=== PATIENT | female | born 1995 | race Asian ===

== ENCOUNTER 2021-01-26 00:29 | Emergency (ER) | payer OTHER ==
[~2021-01-26] VITALS: Ht 160 cm; Wt 62.1 kg
--- NOTE | 2021-01-26 00:35 | PHYS DOC ---
Adult General HPI HPI This is a 26-year-old female G2, P1 at WGA 20 6/7 presents to the emergency department with complaint of vaginal bleeding x2 since yesterday 4 PM. Patient was accompanied by her . She states that she had scant amount of vaginal bleeding yesterday 4 PM. She also noted abdominal cramping discomfort going on for past several days about 2-3 times a day. Today she noted bright red blood again scant amount covering the pantiliner 1 hour prior to arrival to the ER. She was concerned. She came to the ER for evaluation. Denies any trauma. She does report taking a walk today. She had been following up with [facility] at the [facility]. She had blood work as well as ultrasound done. Reportedly ongoing and unremarkable. Review of Systems Review of Systems Constitutional: Denies fever or chills [] Eyes: Denies change in visual acuity, redness, or eye pain [] HENT: Denies nasal congestion or sore throat [] Respiratory: Denies cough or shortness of breath [] Cardiovascular: No additional information not addressed in HPI [] GI: Denies abdominal pain, nausea, vomiting, bloody stools or diarrhea [] : Vaginal bleed during of 21 weeks gestational age Musculoskeletal: Denies back pain or joint pain [] Integument: Denies rash or skin lesions [] Neurologic: Denies headache, focal weakness or sensory changes [] Endocrine: Denies polyuria or polydipsia [] All other systems were reviewed and found to be within normal limits, except as documented in this note. Physical Exam Physical Exam Constitutional: Well developed, well nourished, no acute distress, non-toxic appearance. [] HENT: Normocephalic, atraumatic, bilateral external ears normal, oropharynx moist, no oral exudates, nose normal. [] Eyes: PERRLA, EOMI, conjunctiva normal, no discharge. [] Neck: Normal range of motion, no tenderness, supple, no stridor. [] Cardiovascular:Heart rate regular rhythm, no murmur [] Lungs & Thorax: Bilateral breath sounds clear to auscultation [] Abdomen: Bowel sounds normal, soft, no tenderness, no masses, no pulsatile masses. Gravid abdomen Skin: Warm, dry, no erythema, no rash. [] Back: No tenderness, no CVA tenderness. [] Extremities: No tenderness, no cyanosis, no clubbing, ROM intact, no edema. [] Neurologic: Alert and oriented X 3, normal motor function, normal sensory function, no focal deficits noted. [] Psychologic: Affect normal, judgement normal, mood normal. [] EKG EKG [] Radiology/Procedures Radiology/Procedures [] Heart Score C/O Chest Pain: N/A Risk Factors: Risk Factors: DM, Current or recent (<one month) smoker, HTN, HLP, family history of CAD, obesity. Risk Scores: Risk Factors: DM, Current or recent (<one month) smoker, HTN, HLP, family history of CAD, obesity. Course & Med Decision Making Course & Med Decision Making PATIENT: MARY DE OLIVEIRA ACCOUNT: [id number] : 1995 LOCATION: ER AGE: 26 SEX: F EXAM STATUS: REG ER ORD. PHYSICIAN: PATIENCE HINOJOSA MD REASON: Vaginal bleeding, cramping pain, 21-week gestational age PROCEDURE: OB <14 WKS Obstetric ultrasound less than 14 weeks, limited: Reason for examination: Vaginal bleeding and cramping pain. Single viable intrauterine gestation is present. The cardiac rate of 130 bpm. Placenta is present posteriorly with no evidence of previa or abruption. Adequate amniotic fluid appears be present. No gross abnormality seen at the stomach or kidneys. Fetus is in breech presentation. Biparietal diameter is 4.6 cm corresponding to gestational age of 19 weeks 6 days. Head circumference is 18.0 cm corresponding to gestational age of 2 weeks 1 day. Abdominal circumference is 15.0 cm corresponding to gestational age of 20 weeks 1 day. Femur length is 3.16 cm corresponding to gestational age of 21 weeks 4 days. Head circumference to abdominal circumference ratio is 1.18. Estimated weight is 13 ounces. Estimated gestational age is 20 weeks 3 days with estimated date of confinement of 06/12/2021. The maternal adnexa are not optimally visualized. IMPRESSION: Single viable intrauterine gestation with mean gestational age of 20 weeks 3 days and estimated date of confinement of 06/12/2021. Electronically signed by: Emi Fuentes MD (01/26/2021 3:14 AM) [facility] Test 01/26/21 00:38 01/26/21 00:50 Urine Collection Type Unknown Urine Color Yellow Urine Clarity Clear Urine pH 7.5 Urine Specific Ione 1.020 Urine Protein Neg Urine Glucose (UA) Neg mg/dL Urine Ketones (Stick) Neg mg/dL Urine Blood Neg Urine Nitrite Neg Urine Bilirubin Neg Urine Urobilinogen Dipstick 0.2 mg/dL Urine Leukocyte Esterase Neg Urine RBC 0 /HPF Urine WBC 1-4 /HPF Urine Squamous Epithelial Cells Few /LPF Urine Bacteria 0 /HPF White Blood Count 8.9 x10^3/uL Red Blood Count 3.60 x10^6/uL Hemoglobin 11.8 g/dL Hematocrit 34.8 % Mean Corpuscular Volume 97 fL Mean Corpuscular Hemoglobin 33 pg Mean Corpuscular Hemoglobin Concent 34 g/dL Red Cell Distribution Width 14.9 % Platelet Count 300 x10^3/uL Neutrophils (%) (Auto) 67 % Lymphocytes (%) (Auto) 25 % Monocytes (%) (Auto) 5 % Eosinophils (%) (Auto) 3 % Basophils (%) (Auto) 0 % Neutrophils # (Auto) 5.9 x10^3uL Lymphocytes # (Auto) 2.2 x10^3/uL Monocytes # (Auto) 0.5 x10^3/uL Eosinophils # (Auto) 0.3 x10^3/uL Basophils # (Auto) 0.0 x10^3/uL Sodium Level 139 mmol/L Potassium Level 4.0 mmol/L Chloride Level 105 mmol/L Carbon Dioxide Level 25 mmol/L Anion Gap 9 Blood Urea Nitrogen 11 mg/dL Creatinine 0.4 mg/dL Estimated GFR (Cockcroft-Gault) 190.1 Glucose Level 98 mg/dL Calcium Level 8.4 mg/dL Patient was examined and evaluated immediately upon arrival to the ER. Patient nontoxic appearing. She is not currently having any vaginal bleeding. Patient has good OB follow-up. She has coming up appointment as well. Patient blood work reviewed. She has normal hemoglobin for gestational age. Her transvaginal ultrasound revealed gestational age 20 weeks and 3 days. Live intrauterine . Pelvic exam offered. This is to rule out any threatened . Patient declined. Dragon Disclaimer Dragon Disclaimer This electronic medical record was generated, in whole or in part, using a voice recognition dictation system. Departure Departure: Impression: Primary Impression: Vaginal bleeding before 22 weeks gestation Disposition: HOME / SELF CARE / HOMELESS Admitting Physician: Other Condition: GOOD Referrals: PCP,UNKNOWN (PCP) Additional Instructions: Please follow-up with your OB in the next 2 to 3days. PATIENCE HINOJOSA MD Jan 26, 2021 00:35
[2021-01-26 01:30] LABS: BASO % 0 % (0-3); EOS # 0.3 x10^3/uL (0.0-0.7); EOS % 3 % (0-3); HEMATOCRIT 34.8 % (36.0-47.0); HEMOGLOBIN 11.8 g/dL (12.0-15.5); LYMPH # 2.2 x10^3/uL (1.0-4.8); LYMPH % 25 % (24-48); MEAN CORPUSCULAR HEMOGLOBIN 33 pg (25-35); MEAN CORPUSCULAR HGB CONC 34 g/dL (31-37); MEAN CORPUSCULAR VOLUME 97 fL (79-100); MONO # 0.5 x10^3/uL (0.0-1.1); MONO % 5 % (0-9); NEUT # 5.9 x10^3uL (1.8-7.7); NEUT % 67 % (31-73); PLATELET COUNT 300 x10^3/uL (140-400); RED CELL DISTRIBUTION WIDTH 14.9 % (11.5-14.5); WHITE BLOOD COUNT 8.9 x10^3/uL (4.0-11.0)
[2021-01-26 01:32] LABS: CALCIUM 8.4 mg/dL (8.5-10.1); CREATININE 0.4 mg/dL (0.6-1.0); GFR 190.1
[2021-01-26 03:00] VITALS: BP 128/66
--- NOTE | 2021-01-26 03:17 | RAD ---
Obstetric ultrasound less than 14 weeks, limited: Reason for examination: Vaginal bleeding and cramping pain. Single viable intrauterine gestation is present. The cardiac rate of 130 bpm. Placenta is present pos teriorly with no evidence of previa or abruption. Adequate amniotic fluid appears be present. No marshall s abnormality seen at the stomach or kidneys. Fetus is in breech presentation. Biparietal diameter is 4.6 cm corresponding to gestational age of 19 weeks 6 days. Head circumference is 18.0 cm corresponding to gestational age of 2 weeks 1 day. Abdominal circumference is 15.0 cm corresponding to gestational age of 20 weeks 1 day. Femur length is 3.16 cm corresponding to gestational age of 21 weeks 4 days. Head circumference to abdominal circumference ratio is 1.18. Estimated weight is 13 ounces. Estimated gestational age is 20 weeks 3 days with estimated date of confinement of 06/12/2021. The maternal adnexa are not optimally visualized. IMPRESSION: Single viable intrauterine gestation with mean gestational age of 20 weeks 3 days and estimated date of confinement of 06/12/2021. Electronically signed by: Emi Fuentes MD (01/26/2021 3:14 AM) [facility]
[2021-01-26 03:20] LABS: BILIRUBIN,URINE NEG (NEG); CLARITY,URINE CLEAR; COLOR,URINE YELLOW; GLUCOSE,URINE NEG (NEG)
[2021-01-26 03:21] LABS: BACTERIA,URINE 0 /HPF (0-FEW); NITRITE,URINE NEG (NEG); RBC,URINE 0 /HPF (0-2); SQUAMOUS EPITHELIAL CELL,UR FEW /LPF; UROBILINOGEN,URINE 0.2 mg/dL (0.2 mg/dL)
--- NOTE | 2021-01-26 08:22 | RAD ---
Obstetric ultrasound greater than 14 weeks, limited: Reason for examination: Vaginal bleeding and cramping pain. Single viable intrauterine gestation is present. The cardiac rate of 130 bpm. Placenta is present posteriorly with no evidence of previa or abruption. Adequate amniotic fluid appears be present. No gross abnormality seen at the stomach or kidneys. Fetus is in breech presentation. Biparietal diameter is 4.6 cm corresponding to gestational age of 19 weeks 6 days. Head circumference is 18.0 cm corresponding to gestational age of 2 weeks 1 day. Abdominal circumference is 15.0 cm corresponding to gestational age of 20 weeks 1 day. Femur length is 3.16 cm corresponding to gestational age of 21 weeks 4 days. Head circumference to abdominal circumference ratio is 1.18. Estimated weight is 13 ounces. Estimated gestational age is 20 weeks 3 days with estimated date of confinement of 06/12/2021. The maternal adnexa are not optimally visualized. IMPRESSION: Single viable intrauterine gestation with mean gestational age of 20 weeks 3 days and estimated date of confinement of 06/12/2021. Electronically signed by: Emi Fuentes MD (01/26/2021 3:14 AM) [facility]
== END 2021-01-26 03:29 | disposition home or self-care (01) ==
LOC: ER 00:29
DX: O20.8 Other hemorrhage in early pregnancy (principal); Z3A.20 20 weeks gestation of pregnancy
CPT/HCPCS: 36415; 76805; 80048; 81001; 85025; 86900; 86901; 99284-25